=== PATIENT | male | born 1950 | race Caucasian/White ===

== ENCOUNTER 2024-07-03 05:54 | Day surgery (SDC) | payer OTHER ==
[2024-07-03] VITALS (14 sets, daily range): BP systolic 91–139; BP diastolic 48–99
[~2024-07-03] VITALS: Ht 182.9 cm; Wt 84.9 kg
[~2024-07-03 05:54] MED LIST: ASPI81CH PO; CALCIUM PO; CARV25 PO; Children's Che1 EAC1 PO; EUTHYROX50 MCG PO; LOSARTAN-HCTZ1 EACH PO; Sulfazine EC500 MG PO; TIOT18 INH
[2024-07-03] MEDS ORDERED: Tranexamic Acid 100 ML IV SCH (06:35)
[2024-07-03] MEDS ORDERED: Lactated Ringer's 1,000 ML IV SCH (06:35)
[2024-07-03] MEDS ORDERED: Acetaminophen 500 MG Tab PO SCH (06:35)
[2024-07-03] MEDS ORDERED: Chlorhexidine Mouth Care 15 ML UDC MT SCH (06:35)
[2024-07-03] MEDS ORDERED: OxyCODONE HCL 10 MG TABCR PO SCH (06:35)
[2024-07-03] MEDS ORDERED: CeFAZolin Sodium 2,000 MG in NS 100 ML IV SCH (06:35)
[2024-07-03] MEDS ORDERED: Dexamethasone Sod Phos 10 MG/ML 1ML VIAL ONE (07:07)
[2024-07-03] MEDS ORDERED: Bupivacaine 0.5% HCl 5 MG/ML 30MLVIAL ONE (07:07)
[2024-07-03] MEDS ORDERED: Lidocaine HCl 2% 10 ML SDA ONE (07:24)
[2024-07-03] MEDS ORDERED: FentaNYL Citrate 50 MCG/ML 2 ML Injection ONE (07:42)
[2024-07-03] MEDS ORDERED: propofoL 20 ML IV ONE (07:42)
[2024-07-03] MEDS ORDERED: Lidocaine HCl 2% 20 ML MDV ONE (07:43)
[2024-07-03] MEDS ORDERED: Ketorolac Tromethamine 30mg Vial ONE (07:44)
[2024-07-03] MEDS ORDERED: Ondansetron HCl 2 MG / ML 2ML Vial ONE (07:44)
[2024-07-03] MEDS ORDERED: Rocuronium Bromide 10 MG/ML 5ML Injection IV ONE ×3 (07:55→09:44)
[2024-07-03] MEDS ORDERED: Phenylephrine HCl 10mg/ml 1 ml Vial ONE (08:13)
[2024-07-03] MEDS ORDERED: FentaNYL Citrate 50 MCG/ML 2 ML Injection IV PRN (08:45)
[2024-07-03] MEDS ORDERED: Albuterol 2.5 MG/3 ML VIAL INH PRN (08:45)
[2024-07-03] MEDS ORDERED: HYDROmorphone HCl/Pf 1MG SYR IV PRN (08:45)
[2024-07-03] MEDS ORDERED: Droperidol 5 mg/2 ml Vial IV PRN (08:45)
[2024-07-03] MEDS ORDERED: Sugammadex Sodium 200 MG/2ML SDV (100 MG/ML) ONE ×2 (10:03→10:07)
[2024-07-03] MEDS ORDERED: OxyCODONE HCL 5 MG TAB PO PRN (11:05)
--- NOTE | 2024-07-03 12:25 | NUR ---
Discharge instructions reviewed with patient. Patient verbalizes understanding. Copy given to patient to take home.PT AND TAUGHT HOW TO USE POLAR PAC AND TO USE INCENTIVE SPEROMETER AT HOME.
== END 2024-07-03 23:03 | disposition home or self-care (01) ==
LOC: ORSCMMR 05:54 → ORD 07:30 → ORSCMMR 07:30
PROVIDERS: Orthopaedic Surgery
PROC: 0RRJ00Z Replacement of Right Shoulder Joint with Reverse Ball and Socket Synthetic Substitute, Open Approach (ICD-10-PCS; principal; 2024-07-03 07:30)
DX: M19.011 Primary osteoarthritis, right shoulder (principal); I10 Essential (primary) hypertension; I25.10 Atherosclerotic heart disease of native coronary artery without angina pectoris; Z87.891 Personal history of nicotine dependence; J44.9 Chronic obstructive pulmonary disease, unspecified; Z79.899 Other long term (current) drug therapy; Z79.82 Long term (current) use of aspirin
CPT/HCPCS: 73030; A9270; C1713; C1776; J0690; J1100; J1790; J1885; J2003; J2371; J2405; J2704; J3010; J7120